=== PATIENT | female | born 1960 | race Caucasian/White ===

== ENCOUNTER 2018-02-01 14:14 | Emergency (ER) | END 2018-02-01 17:33 | disposition home or self-care (01) ==

== ENCOUNTER 2019-04-15 22:49 | Emergency (ER) | payer SELFPAY ==
[~2019-04-15] VITALS: Ht 165.1 cm; Wt 66.1 kg
[~2019-04-15 22:49] MED LIST: ASPI-1163 PO; ATOR-2 PO; CEPH-443 PO; CEPH500C PO; CLOP75TA28 PO; FER325 PO; INSU100I12 SQ; LANT3I SC; METO-335 PO
[2019-04-15 22:59] VITALS: BP 142/69; PULSE 78; RESP 18; Ht 165.1 cm; Wt 66.1 kg
== END 2019-04-16 00:43 | disposition left against medical advice (07) ==
LOC: FTE 22:49
DX: Z53.21 Procedure and treatment not carried out due to patient leaving prior to being seen by health care provider (principal)